=== PATIENT | male | born 1995 | race Caucasian/White ===

== ENCOUNTER 2017-08-11 08:41 | Observation (INO) | payer BC ==
[~2017-08-11] VITALS: Ht 193 cm; Wt 118.5 kg
[~2017-08-11 08:41] MED LIST: INSPMPNVLG
[2017-08-11] MEDS ORDERED: SODIUM CHLORIDE 0.9% 1000ML 1,000 ML IV STA ×3 (09:03→11:15)
[2017-08-11] MEDS ORDERED: METHYLPREDNISOLONE 125 MG VIAL IV STA (09:03)
[2017-08-11 09:22] LABS: VEN BLD GAS O2 SATURATION 80.3 %; VEN BLOOD GAS BASE EXCESS 2.6 mEq/L
[2017-08-11 09:26] LABS: BASO % 0.2 %; BASO ABS # 0.02 K/uL (0-0.2); COMPLETE YES; EOS % 0.2 %; HEMATOCRIT 39.2 % (42-52); IG% 0.3 %; LYMPH % 7.3 %; LYMPH ABS # 0.86 K/uL (1.2-3.4); MEAN CELL VOLUME 82.2 fL (80-100); MEAN CORPUSCULAR HEMOGLOBIN 28.7 pg (25-34); MEAN CORPUSCULAR HGB CONC 34.9 g/dl (32-36); MEAN PLATELET VOLUME 10.3 fL (7.4-10.4); PLATELET COUNT 223 K/uL (130-400); RED BLOOD COUNT 4.77 M/uL (4.7-6.1); WHITE BLOOD COUNT 11.86 K/uL (4.8-10.8)
[2017-08-11] MEDS ORDERED: MoRPHine SULFATE 4 MG/ML 1 ML CARP\\VIAL ONE (09:29)
[2017-08-11] MEDS ORDERED: ONDANSETRON INJ 2 MG/ML 2 ML VIAL ONE (09:29)
[2017-08-11 09:44] LABS: BUN/CREATININE RATIO 8.2 (10-20); CALCIUM 8.7 mg/dl (8.5-10.1); CREATININE 0.83 mg/dl (0.60-1.40); MAGNESIUM 1.9 mg/dl (1.8-2.4); POTASSIUM 3.9 mmol/L (3.5-5.1)
[2017-08-11 09:47] LABS: ALB/GLOB RATIO 0.7 (0.9-2)
[2017-08-11] MEDS ORDERED: ACET-1256 PO (09:56)
[2017-08-11 10:14] LABS: URINE APPEARANCE CLEAR (CLEAR); URINE BILIRUBIN NEG (NEG); URINE COLOR YELLOW; URINE EPITHELIAL CELL AUTO 0-5 /lpf (0-5); URINE NITRITE NEG (NEG); URINE SPECIFIC GRAVITY 1.011 (1.000-1.030); UROBILINOGEN POS (NEG); ZZUR CULT IF INDIC CLEAN CATCH NO
--- NOTE | 2017-08-11 10:16 | EMERGENCY ROOM VISIT NOTE ---
History First contact with patient: 08:49 Chief Complaint: SORETHROAT Stated Complaint: SORETHROAT History of Present Illness The patient is a 22 year old male who presents to the Emergency Room via private vehicle with complaints of "sore throat". The patient states that he recently was on a trip to [place], and upon returning this past Friday he developed a sore throat. He states that this has been progressing, and he checked his temperature is 101.8F. He states that he had Tylenol around 6:30 AM. He is a type I diabetic with an insulin pump, with a current BSG of 146. He also notes a moderate amount of ketones. He has a history of strep throat in the past. He does note that he consumed some alcohol over the past few days. Review of Systems A complete 10-point Review of Systems was discussed with the patient, with pertinent positives and negatives listed in the History of Present Illness. All remaining Review of Systems questions can be considered negative unless otherwise specified. Past Medical/Surgical History Medical Problems: (1) Appendectomy (2) Diabetes mellitus Family History FHx: gallbladder disease Social History Smoking Status: Never Smoker Alcohol Use: none Marital Status: single Housing Status: lives with family Occupation Status: employed Current/Historical Medications Scheduled Insulin Aspart (novoLOG INSULIN PUMP ), 1 EA N/A UD Scheduled PRN Acetaminophen (Tylenol), 1,000 MG PO UD PRN for Pain Physical Exam Vital Signs Date Time Temp Pulse Resp B/P (MAP) Pulse Ox O2 Delivery O2 Flow Rate FiO2 08/11/17 09:41 37.8 113 18 158/78 96 Room Air 08/11/17 09:35 113 08/11/17 09:32 97 Room Air 08/11/17 08:46 37.8 129 20 162/90 97 Room Air 08/11/17 08:46 97 Room Air Physical Exam VITAL SIGNS - Vital signs and nursing notes were reviewed. Stable. Tachycardic. GENERAL - 22-year-old male appearing his stated age who is in no acute distress. Communicates well with provider and answers questions appropriately. SKIN - Without rashes. No petechial rashes. HEAD - NC/AT. EYES - PERRL with EOMI bilaterally. Sclera anicteric. No hyphema. EARS - No deformities of external structures noted on gross examination bilaterally. NOSE - Midline and without cyanosis. No epistaxis or purulent drainage noted. Septum midline without deviation or septal hematoma noted. MOUTH/OROPHARYNX - Without perioral cyanosis. Buccal mucosa pink and moist and without leukoplakia. Tongue midline with equal elevation of palate bilaterally. There is 4+ left sided tonsillar hypertrophy, and 3+ right-sided. No uvular deviation. There is patchy exudate. The oropharynx is patent. Minimal Soft palate involvement. No trismus. NECK - Neck with FROM. Supple to palpation. There is significant lymphadenopathy noted. No nuchal rigidity. LUNGS - Chest wall symmetric without accessory muscle use, intercostals retractions, or central cyanosis. Normal vesicular breath sounds CTA B/L. No wheezes, rales, or rhonchi appreciated. CARDIAC - RRR with S1/S2. No murmur, rubs, or gallops appreciated. EXTREMITIES - No clubbing or peripheral cyanosis. No pretibial edema present. +5 /5 strength noted in UE/LE bilaterally. NEUROLOGIC - Cranial nerves II through XII grossly intact. Sensory intact to light touch throughout. PSYCH - A&O, and cooperates fully with examiner. Pt is very pleasant and interacts well with examiner. Medical Decision & Procedures Laboratory Results 08/11/17 09:05 Red Blood Count 4.77, Mean Corpuscular Volume 82.2, Mean Corpuscular Hemoglobin 28.7, Mean Corpuscular Hemoglobin Concent 34.9, Mean Platelet Volume 10.3, Neutrophils (%) (Auto) 79.0, Lymphocytes (%) (Auto) 7.3, Monocytes (%) (Auto) 13.0, Eosinophils (%) (Auto) 0.2, Basophils (%) (Auto) 0.2, Neutrophils # (Auto ) 9.38, Lymphocytes # (Auto) 0.86, Monocytes # (Auto) 1.54, Eosinophils # (Auto ) 0.02, Basophils # (Auto) 0.02 08/11/17 09:05 Test 08/11/17 09:03 08/11/17 09:05 08/11/17 09:15 08/11/17 09:25 White Blood Count 11.86 K/uL (4.8-10.8) Red Blood Count 4.77 M/uL (4.7-6.1) Hemoglobin 13.7 g/dL (14.0-18.0) Hematocrit 39.2 % (42-52) Mean Corpuscular Volume 82.2 fL (80-100) Mean Corpuscular Hemoglobin 28.7 pg (25-34) Mean Corpuscular Hemoglobin Concent 34.9 g/dl (32-36) Platelet Count 223 K/uL (130-400) Mean Platelet Volume 10.3 fL (7.4-10.4) Neutrophils (%) (Auto) 79.0 % Lymphocytes (%) (Auto) 7.3 % Monocytes (%) (Auto) 13.0 % Eosinophils (%) (Auto) 0.2 % Basophils (%) (Auto) 0.2 % Neutrophils # (Auto) 9.38 K/uL (1.4-6.5) Lymphocytes # (Auto) 0.86 K/uL (1.2-3.4) Monocytes # (Auto) 1.54 K/uL (0.11-0.59) Eosinophils # (Auto) 0.02 K/uL (0-0.5) Basophils # (Auto) 0.02 K/uL (0-0.2) RDW Standard Deviation 37.9 fL (36.4-46.3) RDW Coefficient of Variation 12.5 % (11.5-14.5) Immature Granulocyte % (Auto) 0.3 % Immature Granulocyte # (Auto) 0.04 K/uL (0.00-0.02) Venous Blood pH 7.48 (7.36-7.41) Venous Blood Partial Pressure CO2 36 mmHg (38.0-50.0) Venous Blood Partial Pressure O2 44 mmHg Venous Blood HCO3 26 mmol/L Venous Blood Oxygen Saturation 80.3 % Venous Blood Base Excess 2.6 mEq/L Anion Gap 9.0 mmol/L (3-11) Est Creatinine Clear Calc Drug Dose 196.4 ml/min Estimated GFR () 144.8 Estimated GFR (Non- 124.9 BUN/Creatinine Ratio 8.2 (10-20) Calcium Level 8.7 mg/dl (8.5-10.1) Magnesium Level 1.9 mg/dl (1.8-2.4) Total Bilirubin 0.8 mg/dl (0.2-1) Aspartate Amino Transf (AST/SGOT) 68 U/L (15-37) Alanine Aminotransferase (ALT/SGPT) 100 U/L (12-78) Alkaline Phosphatase 150 U/L (45-117) Total Protein 7.6 gm/dl (6.4-8.2) Albumin 3.2 gm/dl (3.4-5.0) Globulin 4.4 gm/dl (2.5-4.0) Albumin/Globulin Ratio 0.7 (0.9-2) Monoscreen NEG (NEG) Bedside Lactic Acid Venous 0.89 mmol/L (0.90-1.70) Medications Administered Medications (Trade) Dose Ordered Sig/Carlos Route Start Time Stop Time Status Last Admin Dose Admin Sodium Chloride 1,000 ml @ 999 mls/hr Q1H1M STAT IV 08/11/17 09:03 08/11/17 10:03 DC 08/11/17 09:03 999 MLS/HR Methylprednisolone Sodium Succinate (Solu-Medrol IV) 125 mg NOW STAT IV 08/11/17 09:03 08/11/17 09:06 DC 08/11/17 09:34 125 MG Morphine Sulfate (MoRPHine SULFATE INJ) 4 mg STK-MED ONCE .ROUTE 08/11/17 09:29 08/11/17 09:30 DC 08/11/17 09:35 4 MG Ondansetron HCl (Zofran Inj) 4 mg STK-MED ONCE .ROUTE 08/11/17 09:29 08/11/17 09:30 DC 08/11/17 09:34 4 MG Medical Decision Patient was seen and evaluated as above. He presents to us today with with a sore throat, febrile, and tachycardic at 129. He appears very dehydrated. He was given 1 L of normal saline, and 125 of Solu-Medrol after discussing the case with the attending physician. This was to help with the swelling in the throat, but are cognizant of the patient's underlying diabetes. He was given 3 g Unasyn. Rapid strep was negative. He was given a total of 3 L of fluid here. His tachycardia persisted after 2. CBC revealed slight leukocytosis 11.86. The ABG with pH of 7.48. Patient's sodium is 135. Liver enzymes elevated, I suspect secondary to recent alcohol consumption in [place]. Urine reveals high pH. No ketones. Ness screen negative. Because of the patient's persistent tachycardia, febrile state, I do believe that inpatient management is warranted. He was given 30 mg of Toradol IV. She was given morphine 4 mg and Zofran 4 mg IV as well for his pain. Please refer to further documentation regarding his stay. In evaluation treatment this patient following diagnoses were obtained: Strep pharyngitis, viral pharyngitis, sepsis, tonsillar abscess, among others. Impression Primary Impression: Sore throat Additional Impression: Anemia Departure Information Dispostion Admitted as an inpatient Condition FAIR Referrals Luis Daniel Hicks M.D. (PCP) Patient Instructions My [facility] Problem Qualifiers
[2017-08-11 10:20] LABS: MANUAL MICROSCOPIC REQUIRED? NO; REVIEW REQ? NO
[2017-08-11 10:21] LABS: SULFASALICYLIC ACID POS (NEG)
[2017-08-11] MEDS ORDERED: KETOROLAC TROMETHAMINE 30 MG/ML VIAL IV STA (11:14)
[2017-08-11] MEDS ORDERED: AMPICILLIN/SULBACTAM SOD INJ 3,000 MG in SODIUM CHLORIDE 0.9% 100ML 100 ML IV STA (11:31)
[2017-08-11 12:22] VITALS: BMI 31.8
[2017-08-11] MEDS ORDERED: ONDANSETRON INJ 2 MG/ML 2 ML VIAL IV PRN (12:45)
[2017-08-11] MEDS ORDERED: ACETAMINOPHEN 325 MG TAB PO PRN (12:45)
[2017-08-11] MEDS ORDERED: ACETAMINOPHEN 500 MG TAB PO PRN (12:45)
[2017-08-11] MEDS ORDERED: MAGNESIUM HYDROXIDE SUSP 30 ML UDC PO PRN (12:45)
[2017-08-11] MEDS ORDERED: KETOROLAC TROMETHAMINE 15 MG/ML VIAL IV PRN (12:45)
--- NOTE | 2017-08-11 13:10 | History and Physical ---
History & Physical Date & Time of Service: Aug 11, 2017 at 12:53 Chief Complaint: Sorethroat Primary Care Physician: Luis Daniel Hicks M.D. History of Present Illness Source: patient 22 y/o M c/o sore throat and swallowing difficulty. Pt states he was in [place] until this past Friday. While there, he had a nosebleed and some congestion, but otherwise felt fine. He returned Friday and since that time he has had worsening throat pain and difficulty swallowing due to pain. He had been able to tolerate PO with difficulty until this AM when he was not able to swallow anything solid. He was able to get down a minimal amount of liquids. He had a fever last night. He was nauseated this AM but without emesis. He is a type I DM pt and has an insulin pump. His BS this AM was 140, but his urine was darker so he checked it for ketones which he noted as +x2. Pt states that he gets strep throat about once a year and this is the same course of events, including the elated ketones. Pt was given IVF, unasyn, solu-medrol, and toradol in the ED and feels somewhat improved. He still has pain, but was able to take PO just prior to our discussion. He feels his swallowing is improved. Pt denies fever, SOB, chest pain, abd pain, c/d, LE pain or swelling. ED PA states tonsils were 4+ on initial exam. Past Medical/Surgical History Medical Problems: (1) Appendectomy Status: Resolved (2) Diabetes mellitus Status: Chronic Family History Family history was reviewed; no changes noted. Social History Smoking Status: Never Smoker Alcohol Use: socially (once per week generally, although he was recently in [facility] and drank more than usual) Drug Use: none Marital Status: single Housing status: lives with family Occupational Status: employed Allergies Coded Allergies: No Known Allergies (Verified , 08/11/17) Home Medications Scheduled Insulin Aspart (novoLOG INSULIN PUMP ), 1 EA N/A UD Scheduled PRN Acetaminophen (Tylenol), 1,000 MG PO UD PRN for Pain Review of Systems Pertinent positives and negatives reviewed in HPI--all others negative Physical Exam Vital Signs Date Time Temp Pulse Resp B/P (MAP) Pulse Ox O2 Delivery O2 Flow Rate FiO2 08/11/17 12:22 Room Air 08/11/17 11:11 38.1 110 21 96 08/11/17 11:01 135/78 08/11/17 10:41 113 38 08/11/17 10:31 142/74 08/11/17 10:11 113 37 95 08/11/17 10:01 149/80 08/11/17 09:41 37.8 113 18 158/78 96 Room Air 08/11/17 09:41 113 15 158/78 98 08/11/17 09:35 113 08/11/17 09:32 97 Room Air 08/11/17 08:46 37.8 129 20 162/90 97 Room Air 08/11/17 08:46 97 Room Air General Appearance: WD/WN, no apparent distress Head: normocephalic, atraumatic Eyes: normal inspection, EOMI ENT: + tonsillar exudate, + muffled/hoarse voice (slightly), + pertinent finding (tonsils are red and swollen, not touching, 3+) Neck: supple Respiratory/Chest: lungs clear Cardiovascular: no edema, + tachycardia Abdomen/GI: non tender, soft Extremities/Musculoskelatal: no calf tenderness, no pedal edema Neurologic/Psych: alert, normal mood/affect, oriented x 3 Skin: normal color, warm/dry Diagnostics Laboratory Results Results Past 24 Hours Test 08/11/17 09:05 08/11/17 09:15 08/11/17 09:25 Range/Units White Blood Count 11.86 4.8-10.8 K/uL Red Blood Count 4.77 4.7-6.1 M/uL Hemoglobin 13.7 14.0-18.0 g/dL Hematocrit 39.2 42-52 % Mean Corpuscular Volume 82.2 80-100 fL Mean Corpuscular Hemoglobin 28.7 25-34 pg Mean Corpuscular Hemoglobin Concent 34.9 32-36 g/dl Platelet Count 223 130-400 K/uL Mean Platelet Volume 10.3 7.4-10.4 fL Neutrophils (%) (Auto) 79.0 % Lymphocytes (%) (Auto) 7.3 % Monocytes (%) (Auto) 13.0 % Eosinophils (%) (Auto) 0.2 % Basophils (%) (Auto) 0.2 % Neutrophils # (Auto) 9.38 1.4-6.5 K/uL Lymphocytes # (Auto) 0.86 1.2-3.4 K/uL Monocytes # (Auto) 1.54 0.11-0.59 K/uL Eosinophils # (Auto) 0.02 0-0.5 K/uL Basophils # (Auto) 0.02 0-0.2 K/uL RDW Standard Deviation 37.9 36.4-46.3 fL RDW Coefficient of Variation 12.5 11.5-14.5 % Immature Granulocyte % (Auto) 0.3 % Immature Granulocyte # (Auto) 0.04 0.00-0.02 K/uL Venous Blood pH 7.48 7.36-7.41 Venous Blood Partial Pressure CO2 36 38.0-50.0 mmHg Venous Blood Partial Pressure O2 44 mmHg Venous Blood HCO3 26 mmol/L Venous Blood Oxygen Saturation 80.3 % Venous Blood Base Excess 2.6 mEq/L Sodium Level 135 136-145 mmol/L Potassium Level 3.9 3.5-5.1 mmol/L Chloride Level 102 98-107 mmol/L Carbon Dioxide Level 24 21-32 mmol/L Anion Gap 9.0 3-11 mmol/L Blood Urea Nitrogen 7 7-18 mg/dl Creatinine 0.83 0.60-1.40 mg/dl Est Creatinine Clear Calc Drug Dose 196.4 ml/min Estimated GFR () 144.8 Estimated GFR (Non- 124.9 BUN/Creatinine Ratio 8.2 10-20 Random Glucose 193 70-99 mg/dl Calcium Level 8.7 8.5-10.1 mg/dl Magnesium Level 1.9 1.8-2.4 mg/dl Total Bilirubin 0.8 0.2-1 mg/dl Aspartate Amino Transf (AST/SGOT) 68 15-37 U/L Alanine Aminotransferase (ALT/SGPT) 100 12-78 U/L Alkaline Phosphatase 150 45-117 U/L Total Protein 7.6 6.4-8.2 gm/dl Albumin 3.2 3.4-5.0 gm/dl Globulin 4.4 2.5-4.0 gm/dl Albumin/Globulin Ratio 0.7 0.9-2 Monoscreen NEG NEG Bedside Lactic Acid Venous 0.89 0.90-1.70 mmol/L Urine Color YELLOW Urine Appearance CLEAR CLEAR Urine pH 8.0 4.5-7.5 Urine Specific Adams 1.011 1.000-1.030 Urine Protein 1+ NEG Urine Glucose (UA) TRACE NEG Urine Ketones NEG NEG Urine Occult Blood NEG NEG Urine Nitrite NEG NEG Urine Bilirubin NEG NEG Urine Urobilinogen POS NEG Urine Leukocyte Esterase NEG NEG Urine WBC (Auto) 1-5 0-5 /hpf Urine RBC (Auto) 0-4 0-4 /hpf Urine Hyaline Casts (Auto) 0 0-5 /lpf Urine Epithelial Cells (Auto) 0-5 0-5 /lpf Urine Bacteria (Auto) NEG NEG Microbiology Results 08/11/17 Blood Culture, Received Pending 08/11/17 Blood Culture, Received Pending 08/11/17 Group A Streptococcus Screen - Final, Resulted SPECIMEN NEGATIVE FOR GROUP A BETA ST... 08/11/17 Group A Streptococcus Screen (ANDREW), Resulted Pending Impression Assessment and Plan 22 y/o M who was admitted for observation on 08/11 for tonsillitis Tonsillitis: Improving on exam s/p IVF, abx, steroids, toradol Strep swab neg, however generally misses about 20% of + cases and pt has hx of same sx with dx of strep Continue unasyn and can likely d/c on PO tomorrow if feeling improved Continue solu-medrol Q12hr Continue toradol and IVF Elevated WBC, febrile Blood cx pending Pt is requesting ENT c/s due to hx of recurrent strep, advised that it is unlikely that he would have a T&A during an acute infection and that CM can help to set up and appt as outpt Elevated LFTs: In the setting of infection and recent heavier than usual alcohol intake Monitor DM-I: can use home insulin pump as prior BS 140, neg ketones in urine Monitor closely given infection and change in PO HTN: pt reports he is to be on lisinopril but he does not take this due to headache Monitor BP Other: Reg diet as tolerated Ambulation for DVT proph given likely short duration of stay Level of Care Med/Surg Advanced Directives Existing Living Will: No Existing Power of Bean Snipper: No Resuscitation Status FULL RESUSCITATION VTE Prophylaxis VTE Risk Assessment Done? Y/N: Yes Risk Level: Low
[2017-08-11 14:00] VITALS: O2SAT 97
[2017-08-11] MEDS ORDERED: PNEUMOCOCCAL ADMINISTRATION CHARGE ONE (14:00)
[2017-08-11] MEDS ORDERED: IV FLUIDS COMPLETED PRN (14:00)
[2017-08-11] MEDS ORDERED: PNEUMOCOCCAL POLYSACCHARIDES 25 MCG/0.5 ML VIAL/SYR IM. ONE (14:00)
[2017-08-11 14:52] VITALS: BP 172/81; PULSE 94; TEMP 36.6; O2SAT 97
[2017-08-11] MEDS ORDERED: INSULIN ASPART 100 UNITS/ML VIAL SC PRN (15:45)
[2017-08-11] MEDS ORDERED: GLUCOSE 10 TABS/TUBE PO PRN (15:45)
[2017-08-11] MEDS ORDERED: GLUCOSE 40% GEL 15 GM TUBE PO PRN (15:45)
[2017-08-11] MEDS ORDERED: GLUCAGON FOR INJ 1 MG VIAL SQ PRN (15:45)
[2017-08-11] MEDS ORDERED: DEXTROSE 50% 50 ML SYR IV PRN (15:45)
[2017-08-11] MEDS: SODIUM CHLORIDE 0.9% 1000ML 1,000 ML IV SCH (16:00)
[2017-08-11] MEDS: NovoLOG INSULIN PUMP SCH ×2 (16:30→22:00)
[2017-08-11] MEDS: AMPICILLIN/SULBACTAM SOD INJ 3,000 MG in SODIUM CHLORIDE 0.9% 100ML 100 ML IV SCH ×2 (18:05→23:45)
[2017-08-11] MEDS: METHYLPREDNISOLONE IV 10 MG in SYRINGE 0 ML IV SCH (21:03)
[2017-08-12 00:08] VITALS: BP 139/77; PULSE 84; TEMP 36.7; O2SAT 96
[2017-08-12] MEDS: SODIUM CHLORIDE 0.9% 1000ML 1,000 ML IV SCH ×2 (02:48→07:51)
[2017-08-12] MEDS: AMPICILLIN/SULBACTAM SOD INJ 3,000 MG in SODIUM CHLORIDE 0.9% 100ML 100 ML IV SCH ×2 (05:34→11:57)
[2017-08-12] MEDS: NovoLOG INSULIN PUMP SCH ×2 (06:30→11:00)
[2017-08-12 07:12] VITALS: BP 138/65; PULSE 82; TEMP 36.3; O2SAT 99
[2017-08-12 07:46] LABS: HEMATOCRIT 39.2 % (42-52); MEAN CORPUSCULAR HGB CONC 34.2 g/dl (32-36); MEAN PLATELET VOLUME 9.9 fL (7.4-10.4); PLATELET COUNT 239 K/uL (130-400); RED BLOOD COUNT 4.78 M/uL (4.7-6.1)
[2017-08-12] MEDS: METHYLPREDNISOLONE IV 10 MG in SYRINGE 0 ML IV SCH (07:51)
[2017-08-12] MEDS ORDERED: NURSING VERBAL MED ORDER ONE (08:00)
[2017-08-12] MEDS ORDERED: COUGH DROP (SUGAR FREE) LOZ 24 LOZ/1 BOX PO PRN (08:00)
[2017-08-12 08:14] LABS: ALT/SGPT 76 U/L (12-78); BLOOD UREA NITROGEN 9 mg/dl (7-18); BUN/CREATININE RATIO 14.2 (10-20); CALCIUM 8.8 mg/dl (8.5-10.1); CARBON DIOXIDE 25 mmol/L (21-32); CHLORIDE 108 mmol/L (98-107); CREATININE 0.66 mg/dl (0.60-1.40); GLUCOSE 95 mg/dl (70-99); POTASSIUM 4.1 mmol/L (3.5-5.1); SODIUM 140 mmol/L (136-145)
[2017-08-12 08:17] LABS: ALB/GLOB RATIO 0.6 (0.9-2); ALKALINE PHOSPHATASE 134 U/L (45-117); AST/SGOT 34 U/L (15-37)
[2017-08-12] MEDS ORDERED: METHYLPREDNISOLONE IV 40 MG in SYRINGE 0 ML IV ONE (10:15)
[2017-08-12] MEDS ORDERED: AMOX500C3 PO (10:20)
[2017-08-12] MEDS ORDERED: PRED10TA PO (10:20)
--- NOTE | 2017-08-12 10:32 | Discharge Instructions ---
Discharge Instructions Date of Service Aug 12, 2017. Admission Reason for Admission: Sorethroat Discharge Discharge Diagnosis / Problem: Tonsillitis Discharge Goals Goal(s): Decrease discomfort, Improve function, Diagnostic testing, Therapeutic intervention Activity Recommendations Activity Limitations: resume your previous activity (as tolerated) . Instructions / Follow-Up Instructions / Follow-Up You were admitted to the hospital for overnight observation after presenting with sore throat and difficulty swallowing, which is presumed to be secondary to strep throat. You were treated with IV fluids, antibiotics, and steroids. Due to your significant improvement and ability to tolerate swallowing solid foods, you are now stable for discharge to home. Please be aware that the steroids will increase your blood sugars, so you may require more insulin than normal. Be sure to check your sugars four times a day to monitor. Medications: *Please take amoxicillin 500 mg by mouth twice a day for 9 more days. You received the first day of antibiotics in the hospital and will have a total of 10 day course. *You have been discharged with an oral steroid. Please take the prednisone taper as instructed: -40 mg by mouth for 2 days, then -20 mg by mouth for 2 days, then -10 mg by mouth for 2 days, then stop *Continue your home medications as prescribed. Follow up: *You will be scheduled for a follow up appointment with your primary care provider, Dr. Hicks, in about 1 week following discharge regarding your hospital stay. Your PCP can follow up on your strep culture, which is pending. *You will also be scheduled to establish care with ears, nose and throat. Please seek medical attention if you experience fevers, chills, sweats, increased difficulty swallowing, increased sore throat, difficulty breathing or shortness of breath, chest pain, nausea, vomiting, numbness or tingling. Current Hospital Diet Patient's current hospital diet: Diabetes Type 1 Diet Discharge Diet Recommended Diet: Diabetes Type 1 Diet Pending Studies Studies pending at discharge: yes List of pending studies: Strep culture, blood cultures Medical Emergencies . Who to Call and When: Medical Emergencies: If at any time you feel your situation is an emergency, please call 911 immediately. . Non-Emergent Contact Non-Emergency issues call your: Primary Care Provider Call Non-Emergent contact if: you have a fever, your pain is not controlled, your pain is worsening, your pain is unusual for you, your pain is concerning you, you have any medication questions . Past History Medical & Surgical History: (1) Tonsillitis (2) Sore throat . "Provider Documentation" section prepared by Anna Guajardo. . VTE Core Measure Inpt VTE Proph given/why not?: Treatment not indicated
[2017-08-12 11:06] VITALS: BP 138/65; PULSE 82; TEMP 36.3; O2SAT 99
--- NOTE | 2017-08-12 13:30 | Discharge Summary ---
Discharge Summary Date of Service Aug 12, 2017. (Anna Guajardo .JAYDON) Discharge Summary Admission Date: Aug 11, 2017 at 12:52 Discharge Date: Aug 12, 2017 Discharge Disposition: Home Principal Diagnosis: Tonsillitis Problems/Secondary Diagnoses: Diabetes mellitus type 1 (Anna Guajardo .JAYDON) Medication Reconciliation New Medications: Amoxicillin (Amoxil) 500 Mg Cap 1 CAP PO BID for 9 Days, #18 CAP Prednisone Tab (Prednisone) 10 Mg Tab 10 MG PO UD for 6 Days, #14 TAB Day 1-2: 40 mg (4 tab) daily Day 3-4: 20 mg (2 tab) daily Day 5-6: 10 mg (1 tab) daily, then stop Continued Medications: Acetaminophen (Tylenol) 500 Mg Tab 1000 MG PO UD PRN for Pain, TAB Insulin Aspart (novoLOG INSULIN PUMP ) 1 Ea Inj 1 EA N/A UD, EA Discharge Exam The patient reports feeling much better. He was able to eat a normal breakfast this morning without any issue. He does complain of a 2/10 soreness in his throat with swallowing but states that this is much improved from admission. He complains of a non-productive cough but denies any wheezing or shortness of breath. The patient states he had a fever, chills and sweats last night but this is now resolved and he is overall feeling much better. The patient denies chest pain, palpitations, claudication, wheezing, shortness of breath, nausea, vomiting, abdominal pain, dysuria, hematuria, urinary retention, paralysis, weakness, numbness and tingling. Review of Systems: Constitutional: + fever, + chills, + sweats, No weakness, No fatigue Eyes: No worsening of vision, No eye pain, No diplopia ENT: + sore throat, No hearing loss, No trouble swallowing Respiratory: + cough, No sputum, No wheezing, No shortness of breath Cardiovascular: No chest pain, No claudication, No palpitations Abdomen: No pain, No nausea, No vomiting Musculoskeletal: No joint pain, No muscle pain, No swelling Genitourinary - Male: No hematuria, No dysuria, No urinary retention Neurologic: No paralysis, No weakness, No numbness/tingling Integumentary: No rash, No itch, No color change Physical Exam: General Appearance: WD/WN, no apparent distress, + obese Eyes: normal inspection, PERRL, EOMI ENT: hearing grossly normal, + pertinent finding (enlarged tonsills, non- touching bilaterally with minimal exudate. Compared to picture pt had taken of tonsils prior to arrival and significantly improved) Neck: supple, no adenopathy, no JVD Respiratory/Chest: lungs clear, normal breath sounds, no respiratory distress Cardiovascular: regular rate, rhythm, no gallop, no murmur Abdomen / GI: normal bowel sounds, non tender, soft Extremities: normal inspection, no calf tenderness, no pedal edema Neurologic/Psychiatric: alert, normal mood/affect, oriented x 3 Skin: normal color, warm/dry, no rash (Anna Guajardo ., PA-C) Hospital Course 22 y/o male with a history of diabetes mellitus type 1 and recurrent strep pharyngitis who presented to the ED on 08/11 with worsening sore throat and trouble swallowing. Tonsillitis--improving -Admit to med/surg for observation -Rapid strep swab negative, but this generally misses about 20% of positive cases. Pt has h/o strep throat 1-2 times a year -Strep culture pending -NSS at 100 cc/hr -Pt given Unasyn while inpt. Discharge on amoxicillin 500 mg PO BID x 9 more days for total 10 day course -Solu-Medrol loading dose in ED, continued while inpt. Discharge on Prednisone 40 mg taper: 40 mg x 2 days, 20 mg x 2 days, 10 mg x 2 days, then stop. -Leukocytosis on discharge, however received IV steroids -Blood cultures pending -Will establish with ENT per pt request for possible tonsillectomy in future Elevated LFTs--improving -LFTs improved prior to discharge -Pt had recent heavier alcohol intake, no abdominal pain DM I--stable -Continue home insulin pump -BSGs elevated due to steroids H/o HTN--reportedly supposed to be taking lisinopril 5 mg PO qd for the last 2 years but has never filled this DVT prophylaxis -Encourage ambulation Code Status -Level I, FULL RESUSCITATION STATUS Total Time Spent: Greater than 30 minutes This includes examination of the patient, discharge planning, medication reconciliation, and communication with other providers. (Anna Guajardo ., PA-C) I agree with PA assessment and plan and have seen and examined pt myself Resting comfortably in bed States no problem with swallowing or breathing VSS Labs reviewed Agree with tx of tonsilitis Emmet neg Strep neg Agree with amoxi on DC in addition to pred taper ENT consult as OP as well (Maciej Martinez D.O.) Discharge Instructions Please refer to the electronic Patient Visit Report (Discharge Instructions) for additional information. (Anna Guajardo ., PA-C) Additional Copies To Luis Daniel Hicks M.D.
[2017-08-12 13:36] LABS: ESTIMATED AVERAGE GLUCOSE 240 mg/dl; HA1C FLAG Normal (Normal)
[2017-08-12 14:12] VITALS: Ht 193 cm; Wt 118.5 kg
== END 2017-08-12 12:34 | disposition home or self-care (01) ==
LOC: C.EDB 08:44 → C.MS4W 12:52 → ENRESERV 13:26 → C.MS4W 14:48 → UNDOADMOB 14:48
PROVIDERS: ADMIT Family Medicine; ATTEND Hospitalist
DX: J03.90 Acute tonsillitis, unspecified (principal); R79.89 Other specified abnormal findings of blood chemistry; D64.9 Anemia, unspecified; E10.9 Type 1 diabetes mellitus without complications; I10 Essential (primary) hypertension; Z79.4 Long term (current) use of insulin; Z79.899 Other long term (current) drug therapy

== ENCOUNTER → 2017-11-09 | Outpatient (CLI) | payer OTHER ==
[~2017-11-09] MED LIST changes: +ACET-1256 PO; +LISI-729 PO; +OSEL75CA23 PO
[2017-11-09 18:52] LABS: INFLUENZA B ANTIGEN Neg for Influ B (NEG)
== END | disposition home or self-care (01) ==
LOC: C.LAB 17:13
PROVIDERS: ATTEND Physician Assistant Medical
DX: Z01.89 Encounter for other specified special examinations (principal)

== ENCOUNTER 2017-11-10 10:37 | Emergency (ER) | payer OTHER ==
[~2017-11-10] VITALS: Ht 190.5 cm; Wt 118.0 kg
[~2017-11-10 10:37] MED LIST changes: -LISI-729 PO; -OSEL75CA23 PO
[2017-11-10 10:39] VITALS: Ht 190.5 cm; Wt 118.0 kg
[2017-11-10] MEDS ORDERED: ONDANSETRON INJ 2 MG/ML 2 ML VIAL IV STA (11:00)
[2017-11-10] MEDS ORDERED: IBUPROFEN 200 MG TAB PO STA (11:00)
[2017-11-10] MEDS ORDERED: OSEL75CA23 PO (11:00)
[2017-11-10] MEDS ORDERED: LISI-729 PO (11:00)
[2017-11-10] MEDS ORDERED: ACETAMINOPHEN 500 MG TAB PO STA (11:00)
[2017-11-10] MEDS ORDERED: SODIUM CHLORIDE 0.9% 1000ML 1,000 ML IV STA (11:00)
--- NOTE | 2017-11-10 11:13 | EMERGENCY ROOM VISIT NOTE ---
History Report prepared by Jesse: Phillip Field Under the Supervision of: Dr. Robert Colvin M.D. First contact with patient: 10:41 Chief Complaint: FLU LIKE SX Stated Complaint: FLU DIABETIC PROBLEM History of Present Illness The patient is a 22 year old white male with a past medical history of diabetes , HTN, and appendectomy who presents to the ED with a cc of persistent flu like symptoms beginning three days ago. Positive fevers, chills, and cough,. Negative vomiting, medication changes, problems with bowel movements and urination. He notes that last night his sugars were 300 and his ketones were maxed out. His sugar is now in the 120s but his ketones are still high. He has never had DKA before, he is currently on an insulin pump, and he has no recent medication changes. His mother was sick a week ago. He has not been eating as much recently, though he is drinking well. Source of History: patient Onset: three days ago Position: other (global) Quality: other (flu like symptoms) Timing: other (persistent) Associated Symptoms: + fevers, + chills, + cough, No vomiting, No urinary symptoms Note: Associated symptoms: High blood sugar and ketones Review of Systems See HPI for pertinent positives and negatives. A total of ten systems were reviewed and were otherwise negative. Past Medical & Surgical Medical Problems: (1) Appendectomy (2) Diabetes mellitus (3) Strep throat (4) Tonsillitis Family History FHx: gallbladder disease Social History Smoking Status: Never Smoker Alcohol Use: none Drug Use: none Marital Status: single Housing Status: lives with family Occupation Status: employed Current/Historical Medications Scheduled Insulin Aspart (novoLOG INSULIN PUMP ), 1 EA N/A UD Lisinopril (Zestril), 5 MG PO DAILY Oseltamivir Phosphate (Tamiflu), 75 MG PO BID Allergies Coded Allergies: No Known Allergies (Verified , 11/10/17) Physical Exam Vital Signs Date Time Temp Pulse Resp B/P (MAP) Pulse Ox O2 Delivery O2 Flow Rate FiO2 11/10/17 10:39 37.5 109 18 171/75 96 Room Air Physical Exam GENERAL: Awake, alert, well-appearing, NAD, non-toxic in appearance HENT: Normocephalic, atraumatic. EYES: Normal conjunctiva. Sclera non-icteric. NECK: Supple. No nuchal rigidity. FROM. No signs of meningismus RESPIRATORY: CTAB, no rhonchi, wheezing, crackles CARDIAC: RRR, no MRG ABDOMEN: Soft, NTND, BS+ MSK: No chest wall TTP, no LE edema NEURO: GCS 15, CN 2-12 intact, moves all 4s on command SKIN: No rash or jaundice noted. Medical Decision & Procedures ER Provider Diagnostic Interpretation: Radiology results as stated below per my review and radiologist interpretation: SINGLE VIEW CHEST CLINICAL HISTORY: Generalized abdominal pain. FINDINGS: An AP, portable, upright chest radiograph is obtained. No prior studies are available for comparison at the time of dictation. The cardiomediastinal silhouette is unremarkable. The lungs and pleural spaces are clear. No pneumothorax is seen. The bony thorax is grossly intact. IMPRESSION: No active disease in the chest. Electronically signed by: Bryan Arcos M.D. 11/10/2017 11:24 AM Dictated Date/Time: 11/10/2017 11:24 AM Laboratory Results 11/10/17 11:30 Red Blood Count 4.84, Mean Corpuscular Volume 82.0, Mean Corpuscular Hemoglobin 28.5, Mean Corpuscular Hemoglobin Concent 34.8, Mean Platelet Volume 10.0, Neutrophils (%) (Auto) 74.7, Lymphocytes (%) (Auto) 10.1, Monocytes (%) (Auto) 14.9, Eosinophils (%) (Auto) 0.1, Basophils (%) (Auto) 0.1, Neutrophils # (Auto ) 5.90, Lymphocytes # (Auto) 0.80, Monocytes # (Auto) 1.18, Eosinophils # (Auto ) 0.01, Basophils # (Auto) 0.01 11/10/17 11:30 Test 11/10/17 11:15 11/10/17 11:30 Urine Color DK YELLOW Urine Appearance CLEAR (CLEAR) Urine pH 6.0 (4.5-7.5) Urine Specific [place] 1.043 (1.000-1.030) Urine Protein 2+ (NEG) Urine Glucose (UA) 3+ (NEG) Urine Ketones 4+ (NEG) Urine Occult Blood NEG (NEG) Urine Nitrite NEG (NEG) Urine Bilirubin NEG (NEG) Urine Urobilinogen POS (NEG) Urine Leukocyte Esterase NEG (NEG) Urine WBC (Auto) 1-5 /hpf (0-5) Urine RBC (Auto) 0-4 /hpf (0-4) Urine Hyaline Casts (Auto) 1-5 /lpf (0-5) Urine Epithelial Cells (Auto) 10-20 /lpf (0-5) Urine Bacteria (Auto) NEG (NEG) Urine Renal Epithelial Cells /lpf (0-5) Urine Mucus PRESENT (NONE PRSENT) White Blood Count 7.91 K/uL (4.8-10.8) Red Blood Count 4.84 M/uL (4.7-6.1) Hemoglobin 13.8 g/dL (14.0-18.0) Hematocrit 39.7 % (42-52) Mean Corpuscular Volume 82.0 fL (80-100) Mean Corpuscular Hemoglobin 28.5 pg (25-34) Mean Corpuscular Hemoglobin Concent 34.8 g/dl (32-36) Platelet Count 187 K/uL (130-400) Mean Platelet Volume 10.0 fL (7.4-10.4) Neutrophils (%) (Auto) 74.7 % Lymphocytes (%) (Auto) 10.1 % Monocytes (%) (Auto) 14.9 % Eosinophils (%) (Auto) 0.1 % Basophils (%) (Auto) 0.1 % Neutrophils # (Auto) 5.90 K/uL (1.4-6.5) Lymphocytes # (Auto) 0.80 K/uL (1.2-3.4) Monocytes # (Auto) 1.18 K/uL (0.11-0.59) Eosinophils # (Auto) 0.01 K/uL (0-0.5) Basophils # (Auto) 0.01 K/uL (0-0.2) RDW Standard Deviation 37.8 fL (36.4-46.3) RDW Coefficient of Variation 12.5 % (11.5-14.5) Immature Granulocyte % (Auto) 0.1 % Immature Granulocyte # (Auto) 0.01 K/uL (0.00-0.02) Venous Blood pH 7.42 (7.36-7.41) Venous Blood Partial Pressure CO2 39 mmHg (38.0-50.0) Venous Blood Partial Pressure O2 36 mmHg Venous Blood HCO3 24 mmol/L Venous Blood Oxygen Saturation 70.0 % Venous Blood Base Excess -0.3 mEq/L Anion Gap 11.0 mmol/L (3-11) Est Creatinine Clear Calc Drug Dose 211.1 ml/min Estimated GFR () > 150.0 Estimated GFR (Non- 129.5 BUN/Creatinine Ratio 9.6 (10-20) Lactic Acid Level 0.7 mmol/L (0.4-2.0) Calcium Level 8.8 mg/dl (8.5-10.1) Total Bilirubin 0.5 mg/dl (0.2-1) Direct Bilirubin 0.1 mg/dl (0-0.2) Aspartate Amino Transf (AST/SGOT) 17 U/L (15-37) Alanine Aminotransferase (ALT/SGPT) 32 U/L (12-78) Alkaline Phosphatase 70 U/L (45-117) Total Protein 7.4 gm/dl (6.4-8.2) Albumin 3.4 gm/dl (3.4-5.0) Lipase 52 U/L (73-393) Beta-Hydroxybutyric Acid 19.35 mg/dL (0.2-2.81) Laboratory results reviewed by me Medications Administered Medications (Trade) Dose Ordered Sig/Carlos Route Start Time Stop Time Status Last Admin Dose Admin Sodium Chloride 1,000 ml @ 999 mls/hr Q1H1M STAT IV 11/10/17 11:00 11/10/17 12:00 DC 11/10/17 11:21 999 MLS/HR Ondansetron HCl (Zofran Inj) 4 mg NOW STAT IV 11/10/17 11:00 11/10/17 11:02 DC 11/10/17 11:20 4 MG Acetaminophen (Tylenol Tab) 1,000 mg NOW STAT PO 11/10/17 11:00 11/10/17 11:02 DC 11/10/17 11:19 1,000 MG Ibuprofen (Advil Tab) 400 mg NOW STAT PO 11/10/17 11:00 11/10/17 11:03 DC 11/10/17 11:20 400 MG ED Course 1052: The patient was evaluated in room C5. A complete history and physical exam was performed. 1228: I reevaluated the patient, and he was feeling better. 1256: I reevaluated the patient. Discussed results and discharge instructions: He verbalized understanding and agreement. The patient is ready for discharge. Medical Decision The patient is a 22 year old white male with a past medical history of diabetes , HTN, and appendectomy who presents to the ED with a cc of persistent flu like symptoms beginning three days ago. Differential diagnosis: Etiologies such as viral syndrome, otitis, pharyngitis, pneumonia, influenza, meningitis, urinary tract infection, sepsis, bacteremia, as well as others were entertained. Patient was seen and evaluated the bedside. Patient does have a prior history of diabetes and does take insulin does have a home. Patient has been complaining of some flulike symptoms and was tested yesterday. 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 Patient had a negative flu test posterior on Tamiflu. Patient noted that he had high ketones in his urine so he came here for further evaluation. He does states that his glucose was greater than 300 last night but this morning it was 100. Patient did have blood work completed along with symptom control and did have a rapid strep test as the patient was complaining of some sore throat. Patient's chest x-ray clear. Patient has a normal normal white blood cell count. Patient's VBG does not show acidosis. Patient's lactate is normal. The patient's bicarbonate is also normal. The patient does not have an anion gap. Patient does have trace elevations in his glucose greater than 200. Patient does have an elevated ketones and beta hydroxybutyrate. I do not believe that the patient is in DKA. Patient is able tolerate fluids without issue. Patient did have a negative rapid strep. Patient was deemed suitable for outpatient follow-up and treatment at this time. Patient is agreeable with this plan of care. Patient was given strict follow-up, discharge, and return precautions. All questions were answered. Patient was deemed suitable for outpatient follow-up at this time. Patient agreed with the plan of care and was safely discharged home. The chart was completed utilizing [employer] voice recognition software. Grammatical errors, random word insertions, pronoun errors, and incomplete sentences are an occasional consequence of this system due to software limitations, ambient noise, and hardware issues. Any formal questions or concerns about the content, text, or information contained within the body of this dictation should be directly addressed to the physician for clarification. Impression Primary Impression: Influenza-like symptoms Additional Impression: Upper respiratory infection Scribe Attestation The scribe's documentation has been prepared under my direction and personally reviewed by me in its entirety. I confirm that the note above accurately reflects all work, treatment, procedures, and medical decision making performed by me. Departure Information Dispostion Home / Self-Care Referrals No Doctor, Assigned (PCP) Forms HOME CARE DOCUMENTATION FORM, IMPORTANT VISIT INFORMATION Patient Instructions ED Upper Resp Infec No Rosetta Babb [facility] Additional Instructions Please return to the emergency department if you have worsening or recurrent symptoms not amenable to at-home treatment. Please call for a follow-up appointment with her primary care physician. Please take your medications as prescribed. If you have other concerns and/or complaints please feel free to also call your primary care physician's office or return the ED for further evaluation, management, and treatment. You may take 800 mg Ibuprofen every 6 hours as needed for pain with food for no more than 2 consecutive days. You may take tylenol 1000 mg every 6 hours as needed for pain. You may take motrin and tylenol separately or at the same time. Take your medications as prescribed. If taking an antibiotic consider taking a probiotic and/or eating yogurt, but at the least, please take with food as it can cause upset stomach. If culture results are not available at discharge, if they are positive for concern of infection, you will be informed of the results as soon as they are available. If you were seen between 11pm and 7AM all radiology reads will be re-read by our in house staff. If any major discrepancies are discovered, you will be notified. You have been examined and treated today on an emergency basis only. This is not a substitute for, or an effort to provide, complete comprehensive medical care. It is impossible to recognize and treat all injuries or illnesses in a single emergency department visit. It is therefore important that you follow up closely with [facility], your PCP, and/or your specialist(s). Call as soon as possible for an appointment. Thank you for your time and consideration. I look forward to speaking with you again soon. Please don't hesitate to call us if you have any questions. Problem Qualifiers Additional Impression: Upper respiratory infection URI type: unspecified URI Qualified Codes: J06.9 - Acute upper respiratory infection, unspecified
--- NOTE | 2017-11-10 11:26 | DIAGNOSTIC IMAGING REPORT ---
SINGLE VIEW CHEST CLINICAL HISTORY: Generalized abdominal pain. FINDINGS: An AP, portable, upright chest radiograph is obtained. No prior studies are available for comparison at the time of dictation. The cardiomediastinal silhouette is unremarkable. The lungs and pleural spaces are clear. No pneumothorax is seen. The bony thorax is grossly intact. IMPRESSION: No active disease in the chest. Electronically signed by: Bryan Arcos M.D. 11/10/2017 11:24 AM Dictated Date/Time: 11/10/2017 11:24 AM
[2017-11-10 11:42] LABS: BASO % 0.1 %; BASO ABS # 0.01 K/uL (0-0.2); EOS % 0.1 %; EOS ABS # 0.01 K/uL (0-0.5); HEMATOCRIT 39.7 % (42-52); HEMOGLOBIN 13.8 g/dL (14.0-18.0); IG# 0.01 K/uL (0.00-0.02); LYMPH % 10.1 %; MEAN CORPUSCULAR HEMOGLOBIN 28.5 pg (25-34); MEAN CORPUSCULAR HGB CONC 34.8 g/dl (32-36); MONO % 14.9 %; MONO ABS # 1.18 K/uL (0.11-0.59); NEUT % 74.7 %; PLATELET COUNT 187 K/uL (130-400); RED CELL DISTRIBUTION WIDTH CV 12.5 % (11.5-14.5); RED CELL DISTRIBUTION WIDTH SD 37.8 fL (36.4-46.3); WHITE BLOOD COUNT 7.91 K/uL (4.8-10.8)
[2017-11-10 12:01] LABS: ALBUMIN 3.4 gm/dl (3.4-5.0); ALT/SGPT 32 U/L (12-78); AST/SGOT 17 U/L (15-37); BLOOD UREA NITROGEN 7 mg/dl (7-18); CALCIUM 8.8 mg/dl (8.5-10.1); CARBON DIOXIDE 23 mmol/L (21-32); CREATININE 0.76 mg/dl (0.60-1.40); GLUCOSE 229 mg/dl (70-99); LIPASE 52 U/L (73-393); POTASSIUM 3.7 mmol/L (3.5-5.1); SODIUM 131 mmol/L (136-145)
[2017-11-10 12:03] LABS: ALKALINE PHOSPHATASE 70 U/L (45-117); TOTAL PROTEIN 7.4 gm/dl (6.4-8.2)
[2017-11-10 14:07] VITALS: BP 152/68; PULSE 100; TEMP 36.9; O2SAT 96
== END 2017-11-10 14:08 | disposition home or self-care (01) ==
LOC: C.EDB 10:39 → C.EDA 14:08
DX: J06.9 Acute upper respiratory infection, unspecified (principal); R50.9 Fever, unspecified; R05 Cough; E11.9 Type 2 diabetes mellitus without complications; I10 Essential (primary) hypertension; Z96.41 Presence of insulin pump (external) (internal); Z83.79 Family history of other diseases of the digestive system; Z79.4 Long term (current) use of insulin; Z79.899 Other long term (current) drug therapy